=== PATIENT | male | born 1940 | race African-American/Black ===

== ENCOUNTER 2022-01-22 18:12 | Observation (INO) ==
[2022-01-22 19:08] LABS: Basophils % 0.3 % (0.0-0.8); Eosinophils # 0.2 10*3/uL (0.0-0.87); Eosinophils % 3.2 % (0.00-10.9); Hematocrit 35.4 VOL% (42.0-52.0); Hemoglobin 11.4 GM/DL (14.0-18.0); Immature Granulocytes % 0.1 %; Immature Granulocytes Absolute 0.01 #; Lymphocytes % 26.4 % (21.2-54.2); Mean Corpuscular HGB Conc 32.2 GM/DL (32-36); Mean Corpuscular Volume 102.6 FL (87-102); Mean Platelet Volume 10.6 FL (9.6-12.0); Monocytes % 12.7 % (1.7-12.7); Neutrophils % 57.3 % (38.7-73.9); Platelet Count 232 T/CUMM (130-400); Red Blood Count 3.45 MC/CUMM (3.8-5.5); Red Cell Distribution Width 11.8 % (9.3-17.3); White Blood Count 7.6 T/CUMM (4-12)
[2022-01-22 19:19] LABS: PT Patient Result 10.9 SECS (10.5-12.0)
[2022-01-22 19:32] LABS: Albumin 2.9 G/DL (3.4-5.0); Bilirubin,Total 0.4 MG/DL (0.20-1.00); Calcium 9.2 MG/DL (8.5-10.1); Osmolality,Calculated 286.7 MOS/KG (273-304); Potassium 5.2 MMOL/L (3.5-5.1); Total Protein 6.8 G/DL (6.4-8.2)
[2022-01-22] MEDS ORDERED: DEXTROSE 50% 25 GM/50 ML VIAL IV STA (19:51)
[2022-01-22] MEDS ORDERED: INSULIN REGULAR 100 UNIT/ML IV STA (19:51)
[2022-01-22] MEDS ORDERED: SODIUM CHLORIDE 0.9% 1,000 ML IV STA (19:51)
[2022-01-22] MEDS ORDERED: DEXTROSE 50% 25 GM/50 ML SYRINGE IV STA (19:52)
[2022-01-22] MEDS ORDERED: ACETAMINOPHEN 325 MG TABLET PO PRN (20:02)
[2022-01-22] MEDS ORDERED: ONDANSETRON 4 MG/2 ML VIAL IV PRN (20:02)
[2022-01-22] MEDS ORDERED: GLUCAGON 1 MG VIAL IM PRN (20:02)
[2022-01-22] MEDS ORDERED: DEXTROSE 10% 250 ML BAG IV PRN (20:24)
[2022-01-22] MEDS ORDERED: SODIUM CHLORIDE 0.9% 1,000 ML IV SCH (21:00)
[2022-01-22] MEDS: HEPARIN 5,000 UNIT/1 ML VIAL SUBCUT SCH (21:25)
[2022-01-22 22:31] LABS: Bacteria,Urine Occasional /HPF (Few); Hyaline Casts,Urine 1 /LPF (0-3); Mucus,Urine Occasional /LPF (Occasional); RBC,Urine <1 /HPF (0-4); Squamous Epithelial Cell,Urine Occasional /HPF (0-10)
[2022-01-22 22:32] LABS: Protein,Urine Negative (Negative); Urine Appearance Clear (Clear); Urine Color Yellow (Yellow); Urine Specific Gravity 1.015 (1.001-1.035); Urine pH 5.5 (4.5-8.0)
[2022-01-22 22:33] LABS: Bilirubin,Urine Negative (Negative); Blood, Urine Negative (Negative); Glucose,Urine (UA) Negative (Negative); Ketones,Urine Negative (Negative); Nitrite,Urine Negative (Negative)
[2022-01-23 08:34] LABS: Basophils % 0.6 % (0.0-0.8); Eosinophils # 0.3 10*3/uL (0.0-0.87); Eosinophils % 4.3 % (0.00-10.9); Hematocrit 36.8 VOL% (42.0-52.0); Hemoglobin 12.2 GM/DL (14.0-18.0); Immature Granulocytes % 0.1 %; Immature Granulocytes Absolute 0.01 #; Lymphocytes # 2.1 10*3/uL (1.4-4.0); Lymphocytes % 31.2 % (21.2-54.2); Mean Corpuscular HGB Conc 33.2 GM/DL (32-36); Mean Corpuscular Volume 100.3 FL (87-102); Mean Platelet Volume 10.6 FL (9.6-12.0); Monocytes # 0.6 10*3/uL (0.11-0.8); Monocytes % 8.5 % (1.7-12.7); Neutrophils % 55.3 % (38.7-73.9); Platelet Count 248 T/CUMM (130-400); Red Blood Count 3.67 MC/CUMM (3.8-5.5); Red Cell Distribution Width 11.9 % (9.3-17.3); White Blood Count 6.7 T/CUMM (4-12)
[2022-01-23] MEDS: PANTOPRAZOLE 40 MG TABLET PO SCH (08:49)
[2022-01-23] MEDS: HEPARIN 5,000 UNIT/1 ML VIAL SUBCUT SCH ×2 (08:50→20:18)
[2022-01-23 08:57] LABS: Bilirubin,Total 0.4 MG/DL (0.20-1.00); Calcium 9.3 MG/DL (8.5-10.1); Osmolality,Calculated 284.7 MOS/KG (273-304); Potassium 4.7 MMOL/L (3.5-5.1); Risk Ratio 5.61; Total Protein 7.6 G/DL (6.4-8.2); VLDL Cholesterol 34.2 MG/DL
[2022-01-23 08:58] LABS: % Iron Saturation 24.6 % (18-50); Ferritin 328.3 ng/mL (26-388)
[2022-01-23 09:08] LABS: Folate 10.86 NG/ML (5.38-24.0)
[2022-01-23] MEDS: SODIUM CHLORIDE 0.9% 1,000 ML IV SCH (11:05)
[2022-01-24 06:47] LABS: Basophils % 0.4 % (0.0-0.8); Eosinophils # 0.3 10*3/uL (0.0-0.87); Eosinophils % 3.7 % (0.00-10.9); Hematocrit 33.2 VOL% (42.0-52.0); Hemoglobin 11.2 GM/DL (14.0-18.0); Immature Granulocytes % 0.1 %; Immature Granulocytes Absolute 0.01 #; Lymphocytes # 2.3 10*3/uL (1.4-4.0); Lymphocytes % 31.9 % (21.2-54.2); Mean Corpuscular HGB Conc 33.7 GM/DL (32-36); Mean Corpuscular Volume 99.4 FL (87-102); Mean Platelet Volume 11.3 FL (9.6-12.0); Monocytes # 0.7 10*3/uL (0.11-0.8); Monocytes % 10.3 % (1.7-12.7); Neutrophils % 53.6 % (38.7-73.9); Platelet Count 225 T/CUMM (130-400); Red Blood Count 3.34 MC/CUMM (3.8-5.5); Red Cell Distribution Width 11.7 % (9.3-17.3); White Blood Count 7.1 T/CUMM (4-12)
[2022-01-24 07:19] LABS: Osmolality,Calculated 287.3 MOS/KG (273-304); Potassium 4.4 MMOL/L (3.5-5.1)
[2022-01-24] MEDS ORDERED: CLOPIDOGREL 75 MG TABLET PO SCH (09:00)
[2022-01-24] MEDS: HEPARIN 5,000 UNIT/1 ML VIAL SUBCUT SCH (09:36)
[2022-01-24] MEDS: PANTOPRAZOLE 40 MG TABLET PO SCH (09:58)
[2022-01-24 11:52] VITALS: BP 158/41
[2022-01-24] MEDS: SODIUM CHLORIDE 0.9% 1,000 ML IV SCH (12:23)
== END 2022-01-24 11:59 | disposition home or self-care (01) ==
LOC: N.EDINP 18:12 → N.ED 18:12 → N.EDINP 01-23 02:09 → N.5E 01-23 03:12
PROVIDERS: ADMIT Internal Medicine Geriatric Medicine; ATTEND Internal Medicine Geriatric Medicine

== ENCOUNTER 2022-07-11 10:05 | Observation (INO) ==
[2022-07-11 11:04] LABS: Bacteria,Urine Occasional /HPF (Few); Bilirubin,Urine Negative (Negative); Blood, Urine Negative (Negative); Glucose,Urine (UA) Negative (Negative); Hyaline Casts,Urine 4 /LPF (0-3); Ketones,Urine Negative (Negative); Mucus,Urine Occasional /LPF (Occasional); Nitrite,Urine Negative (Negative); Protein,Urine Negative (Negative); RBC,Urine 1 /HPF (0-4); Squamous Epithelial Cell,Urine Occasional /HPF (0-10); Urine Appearance Clear (Clear); Urine Color Yellow (Yellow); Urine Specific Gravity 1.015 (1.001-1.035); Urine pH 5.5 (4.5-8.0)
[2022-07-11 11:08] LABS: Barbiturates Screen,Urine Negative (Negative); Benzodiazepines Screen,Urine Negative (Negative); Cannabinoid Screen,Urine Negative (Negative); Opiate Screen,Urine Negative (Negative); Phencyclidine Screen,Urine Negative (Negative)
[2022-07-11 11:31] LABS: Basophils % 0.2 % (0.0-0.8); Eosinophils # 0.3 10*3/uL (0.0-0.87); Eosinophils % 2.3 % (0.00-10.9); Hematocrit 31.5 VOL% (42.0-52.0); Hemoglobin 10.1 GM/DL (14.0-18.0); Immature Granulocytes % 0.5 %; Immature Granulocytes Absolute 0.06 #; Lymphocytes # 1.8 10*3/uL (1.4-4.0); Lymphocytes % 13.9 % (21.2-54.2); Mean Corpuscular HGB Conc 32.1 GM/DL (32-36); Mean Corpuscular Volume 99.7 FL (87-102); Mean Platelet Volume 10.2 FL (9.6-12.0); Monocytes # 0.9 10*3/uL (0.11-0.8); Monocytes % 6.5 % (1.7-12.7); Neutrophils % 76.6 % (38.7-73.9); Platelet Count 342 T/CUMM (130-400); Red Blood Count 3.16 MC/CUMM (3.8-5.5); Red Cell Distribution Width 12.5 % (9.3-17.3); White Blood Count 13.1 T/CUMM (4-12)
[2022-07-11 11:40] LABS: PT Patient Result 11.3 SECS (10.1-12.1)
[2022-07-11 11:50] LABS: Alanine Aminotransferase 21 U/L (16-61); Albumin 3.5 G/DL (3.4-5.0); Alkaline Phosphatase 94 U/L (45-117); Aspartate Amino Transferase 14 U/L (0-37); Bilirubin,Total < 0.39 MG/DL (0.20-1.00); Blood Urea Nitrogen 8 MG/DL (7-18); Calcium 8.9 MG/DL (8.5-10.1); Carbon Dioxide 24 MMOL/L (21-32); Chloride 110 MMOL/L (98-107); Glucose 108 MG/DL (74-106); Osmolality,Calculated 281.1 MOS/KG (273-304); Sodium 142 MMOL/L (136-145); Total Protein 6.6 G/DL (6.4-8.2)
[2022-07-11] MEDS ORDERED: ONDANSETRON 4 MG/2 ML VIAL IV PRN (13:27)
[2022-07-11] MEDS: ENOXAPARIN 40 MG/0.4 ML SYRINGE SUBCUT SCH (14:06)
[2022-07-11] MEDS ORDERED: INFLUENZA VIRUS VACCINE 0.5 ML SYRINGE IM ONE (16:08)
[2022-07-11] MEDS ORDERED: PNEUMOCOCCAL VACCINE (13 VALENT) 0.5 ML SYRINGE IM ONE (16:09)
[2022-07-11] MEDS: PIPERACILLIN/TAZOBACTAM 3,375 MG in SODIUM CHLORIDE 0.9% 100 ML IV SCH (18:02)
[2022-07-11] MEDS: ACETAMINOPHEN 325 MG TABLET PO PRN ×2 (18:05→21:14)
[2022-07-12] MEDS: PIPERACILLIN/TAZOBACTAM 3,375 MG in SODIUM CHLORIDE 0.9% 100 ML IV SCH ×3 (03:40→18:20)
[2022-07-12] MEDS: ACETAMINOPHEN 325 MG TABLET PO PRN ×4 (03:45→20:39)
[2022-07-12 06:01] LABS: Basophils % 0.4 % (0.0-0.8); Eosinophils # 0.4 10*3/uL (0.0-0.87); Eosinophils % 4.4 % (0.00-10.9); Hematocrit 28.7 VOL% (42.0-52.0); Hemoglobin 9.3 GM/DL (14.0-18.0); Immature Granulocytes % 0.5 %; Immature Granulocytes Absolute 0.05 #; Lymphocytes % 21.2 % (21.2-54.2); Mean Corpuscular HGB Conc 32.4 GM/DL (32-36); Mean Platelet Volume 10.4 FL (9.6-12.0); Monocytes # 0.8 10*3/uL (0.11-0.8); Monocytes % 8.5 % (1.7-12.7); Platelet Count 305 T/CUMM (130-400); Red Cell Distribution Width 12.4 % (9.3-17.3); White Blood Count 9.6 T/CUMM (4-12)
[2022-07-12 06:30] LABS: Alanine Aminotransferase 13 U/L (16-61); Albumin 2.2 G/DL (3.4-5.0); Alkaline Phosphatase 53 U/L (45-117); Aspartate Amino Transferase 12 U/L (0-37); Bilirubin,Total < 0.39 MG/DL (0.20-1.00); Blood Urea Nitrogen 14 MG/DL (7-18); Calcium 8.4 MG/DL (8.5-10.1); Carbon Dioxide 26 MMOL/L (21-32); Chloride 111 MMOL/L (98-107); Cholesterol 121 MG/DL (50-200); Glucose 116 MG/DL (74-106); HDL Cholesterol 30 MG/DL (40-60); Osmolality,Calculated 289.7 MOS/KG (273-304); Potassium 3.5 MMOL/L (3.5-5.1); Risk Ratio 4.03; Sodium 145 MMOL/L (136-145); Total Protein 6.3 G/DL (6.4-8.2); Triglycerides 85 MG/DL (2-150)
[2022-07-12] MEDS: ENOXAPARIN 40 MG/0.4 ML SYRINGE SUBCUT SCH (15:07)
[2022-07-12] MEDS: ZINC OXIDE 16% PASTE 57 GM TUBE TOP SCH (20:39)
[2022-07-13] MEDS: PIPERACILLIN/TAZOBACTAM 3,375 MG in SODIUM CHLORIDE 0.9% 100 ML IV SCH ×2 (01:52→10:05)
[2022-07-13] MEDS: ACETAMINOPHEN 325 MG TABLET PO PRN (04:30)
[2022-07-13] MEDS: hydrALAZINE 20 MG/1 ML VIAL IV PRN ×2 (04:30→13:00)
[2022-07-13 06:11] LABS: Basophils # 0.1 10*3/uL (0.0-0.2); Basophils % 0.5 % (0.0-0.8); Eosinophils # 0.5 10*3/uL (0.0-0.87); Eosinophils % 4.9 % (0.00-10.9); Hematocrit 30.5 VOL% (42.0-52.0); Hemoglobin 10.1 GM/DL (14.0-18.0); Immature Granulocytes % 1.1 %; Immature Granulocytes Absolute 0.11 #; Lymphocytes # 2.3 10*3/uL (1.4-4.0); Lymphocytes % 23.8 % (21.2-54.2); Mean Corpuscular HGB Conc 33.1 GM/DL (32-36); Mean Corpuscular Volume 97.4 FL (87-102); Mean Platelet Volume 10.2 FL (9.6-12.0); Monocytes # 0.9 10*3/uL (0.11-0.8); Monocytes % 8.8 % (1.7-12.7); Neutrophils % 60.9 % (38.7-73.9); Platelet Count 337 T/CUMM (130-400); Red Blood Count 3.13 MC/CUMM (3.8-5.5); Red Cell Distribution Width 12.4 % (9.3-17.3); White Blood Count 9.8 T/CUMM (4-12)
[2022-07-13 06:49] LABS: Calcium 8.9 MG/DL (8.5-10.1); Osmolality,Calculated 286.7 MOS/KG (273-304); Potassium 3.6 MMOL/L (3.5-5.1)
[2022-07-13] MEDS: ZINC OXIDE 16% PASTE 57 GM TUBE TOP SCH (08:00)
[2022-07-13 12:58] VITALS: BP 179/62
[2022-07-13] MEDS ORDERED: LOSARTAN 25 MG TABLET PO SCH (14:00)
[2022-07-13] MEDS: ENOXAPARIN 40 MG/0.4 ML SYRINGE SUBCUT SCH (14:30)
[2022-07-13] MEDS ORDERED: PNEUMOCOCCAL VACCINE (13 VALENT) 0.5 ML SYRINGE IM ONE (16:00)
== END 2022-07-13 17:47 | disposition home health service (06) ==
LOC: N.ED 10:05 → N.EDINP 10:05 → SUATTDRO 13:27 → N.3E 16:27
PROVIDERS: ADMIT Family Medicine; ATTEND Internal Medicine